=== PATIENT | male | born 1975 | race Caucasian/White ===

== ENCOUNTER → 2022-04-25 10:30 | Outpatient (BNVA) | payer SELFPAY | PROVIDERS: Family Provider Nurse Practitioner; Visit Provider Nurse Practitioner Family | DX: R21 Rash and other nonspecific skin eruption (principal); L30.9 Dermatitis, unspecified; T78.40XA Allergy, unspecified, initial encounter | CPT/HCPCS: 80053 ==

== ENCOUNTER 2024-07-06 12:37 | Inpatient (IN) | payer SELFPAY ==
[2024-07-06] VITALS (25 sets, daily range): BP systolic 98–138; BP diastolic 64–88; PULSE 66–92; RESP 9–26; TEMP 36.8–37.9; O2SAT 89–98; BMI 26.2; BMI 24.5
--- NOTE | 2024-07-06 12:37 | ECG_ITS ---
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 Measurements Intervals [place] Rate: 61 P: 70 PA: 153 QRS: 69 QRSD: 110 T: 60 QT: 406 QTc: 411 Interpretive Statements SINUS RHYTHM INFERIOR MYOCARDIAL INFARCTION , POSSIBLY ACUTE [40+ ms Q WAVE AND/OR ST/T ABNORMALITY IN II/aVF] ACUTE MD No previous ECG available for comparison Electronically Signed On 07-06-2024 21:27:59 INSPECTOR RAW QUARTZ by Tahir Mayorga M.D. [email or web address]
--- NOTE | 2024-07-06 12:40 | XACV_ITS ---
Ht: 183 cm Wt: 88 kg BSA: 2.12 m2 Gender: Male : 1975 Any Known Allergies: Other Exam Priority: Routine Procedure(s): Procedure Description: Diagnostic procedure Procedure Description: PCI procedure Procedure Description: Left Heart Catheterization Procedure Description: Left ventriculography Procedure Description: Drug Eluting Coronary Stent Procedure Description: PTCA Procedure Description: Miscellaneous Procedure Description: ACT Procedure Description: Coronary Angiography Diagnostic Cath Status: Emergency Diagnostic Findings * Left Main has no disease. * Circumflex has no disease. * Mid Left Anterior Descending: moderate 50% stenosis, CRISTINO: 3 flow. * Proximal Right Coronary Artery to Distal Right Coronary Artery: total occlusion, CRISTINO: 0 flow. * Coronary angiography shows right dominance. PCI Indication: STEMI - Immediate PCI for STEMI Interventional Findings * Successful PCI to mid RCA. Lesion was prepared with 2.5 x 12 mm TREK balloon, followed by deployment of KENJI MDT 3.5 x 18 mm stent posted at high LUNA of 12 mm. Stent was then post-dilated with serial dilatation of NC MDT 3.75 x 20 at 14 LUNA in its entire length to ensure proper approximation. Excellent angiographic result with CRISTINO-3 flow was achieved. Conclusions 1. There is total occlusion coronary artery disease with two vessel disease. 2. All quezada are normal. 3. Normal left ventricular systolic function. Ejection fraction of 60%. 4. Proximal Right Coronary Artery to Distal Right Coronary Artery was treated with a Balloon, Drug Eluting Stent, and Balloon. Recommendations * 1-Return to inpatient for close monitoring and routine cath care 2-Risk factor modification for secondary prevention 3-Statin and aspirin 81 mg life-long, if tolerated 4-Patient was pre-loaded with 600 mg of Plavix, continue Plavix 75mg p.o. daily for at least one year. We will assess at the end of one year again to continue if further or not 5-Continue optimal medical management 6-Follow up with Dr. Lipscomb in four weeks and your primary care in 10 days. Interventional RX Recommendation: PCI w/o planned CABG Diagnostic RX Recommendation: PCI w/o planned CABG Ventriculography Ejection Fraction: 60.0 % Pressures Phase:Rest AO : 134 / 81 ( 102 ) @ 1:05:00 PM 83 / 53 ( 71 ) @ 1:13:00 PM 141 / 86 ( 111 ) @ 1:32:00 PM 142 / 87 ( 113 ) @ 1:32:00 PM LV : 153 / 9 / 25 @ 1:31:00 PM 154 / 11 / 30 @ 1:32:00 PM 156 / 11 / 29 @ 1:32:00 PM Valves Phase:DefaultPhase AV : 10.0 @ 1:41:35 PM AV Mean Gradient: 19.0 @ 1:41:35 PM Clinical Evaluation EBL: 5mL-10mL Procedural Details Procedure Consent Obtained. Pre-Procedure Time Out. Identified patient by full name and date of as verbalized by the patient/guarantor. Does the consent match the physician's order: N/A Emergent. Accurate & Complete Informed Consent: N/A Emergent. Inpatient/Outpatient History & Physical on Chart: N/A Emergent. If H&P is completed, is and addenduem needed: N/A Emergent; If yes, is the addendum complete: N/A Emergent. Visualize and Verify Site with Patient/Guarantor: N/A. Relevant Radiology Images available: No. Pre-op teaching completed and patient verbalized understanding. The risks, benefits, and alternatives of sedation and/or procedure were discussed by physician. The patient agrees to continue. Procedure started. [facility] Clinical Fraility Score: 3: Managing Well. 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 Chest Pain Symptom Assessment: Typical Angina Symptoms. Cardiovascular Instability: No. Correct patient, site and procedure confirmed by cath team. PERRLA. 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 Lungs clear x 5 lobes. IV Site on Arrival: 20 gauge in the right anticubital. IV Site on Arrival: 18 gauge in the left anticubital. IV Fluids: 0.9% NaCl at KVO. 900 mL infused prior to skill labor. Oxygen started at 2liters/min via nasal canula. right groin was prepped with chloroprep then draped in the usual sterile fashion. right radial was prepped with chloroprep then draped in the usual sterile fashion. Physician arrived. Equipment: 6F - Radial. Cardiac Cath Pack. ACIST Manifold Kit Model BT 2000. Heparinized Saline (2 units/mL), 1000 mL bag. Baseline sample Acquired. HR: 65 BPM. Pre Procedural Pulses: bilateral radial was 3+. Physician scrubbed in. Immediate Pre-Procedure Time Out. Correct Patient: Yes; Correct Procedure: Yes; Correct Site: Yes; Correct Patient Position: Yes; Correct Supplies: Yes; Dried Flammable Prep: Yes; Blood Products Available: N/A;. Lidocaine 1% infiltrated to the right radial. Arterial access obtained. 6 icelandic JR 4 guide catheter was inserted over the wire. AP pads applied to pt. Runthrough guidewire was advanced through the guide catheter to lesion in the prox RCA. A 2nd Runthrough guidewire was advanced through the guide catheter to lesion in the mid RCA. Inflation number : 1 A AB TREK 2.50X15 RX BALLOON was prepped and advanced across the Prox RCA , then inflated to 8 LUNA for 0:07 seconds. Inflation number: 2 The AB TREK 2.50X15 RX BALLOON was reinflated across the Prox RCA, to 14 LUNA for 0:14 seconds. Balloon out. Results checked. Inflation Number : 3 A RANDEE Arana KENJI 3.5X30 VICENTE -Lot Number# [id number] exp date 01/14/2027 was prepped and advanced across the Prox RCA. The stent was deployed at 12 LUNA for 0:25 seconds. Stent balloon out over wire. ACT drawn. Results 357 seconds. Therapeutic limits - pre-heparin administration 90-150 seconds and monitoring heparin during a vascular procedure >250 seconds. Inflation number : 4 A MDT NC EUPHORA RX [id number] BALLOON was prepped and advanced across the Prox RCA , then inflated to 14 LUNA for 0:21 seconds. Inflation number: 5 The MDT NC EUPHORA RX [id number] BALLOON was reinflated across the Prox RCA, to 14 LUNA for 0:17 seconds. Results checked. Balloon out. Wire out. Guide catheter out. A 5 icelandic TIG catheter in over wire. Multiple views taken of left coronary artery. Catheter removed over the exchange wire. A 5 icelandic Angled Pig catheter in over wire. EDP Sample taken: LV 153/9,25; HR: 93 BPM; SpO2: 98%. LV gram performed in BLACK @ 10 mL/second for a total of 30 mL. EDP Sample taken: LV 154/11,30; HR: 94 BPM; SpO2: 98%. Pullback taken: LV 156/11,29; AO 141/86(111); Mean: 19mmHg, Peak to Peak: 10mmHg, SEP: 9sec/min; HR: 93 BPM; SpO2: 98%. Catheter removed over the exchange wire. Physician scrubbed out. A TR Band was successful obtaining hemostatsis at the Right Radial artery insertion site. TR band placed. Hemostasis obtained. Post Procedure: Pulses reassessed and unchanged. PERRLA. 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 No VTE prophylaxis required. Medication's Wasted: Lidocaine 1% = 18 mL. Medication's Wasted: Nitro = 49.8 mg. Medication's Wasted: Heparin = 1000 units. Medication's Wasted: Other = atropine 0.5 mg. Medication's Wasted: Other = aggrastat 56 mL. Contrast type used: Omnipaque 300 mgI/mL, 500 mL bottle. Total IV fluids: 250 mL. Post-op diagnosis: stemi. PCI Indication: STEMI. Complications: none. Estimated blood loss: 5mL-10mL. Responsiveness - Normal response to verbal stimuli; alert and oriented, PERRLA. Airway - Unaffected, no intervention required; spontaneous ventilation. Circulation: W/N/L, pulses unchanged. Nausea/Vomiting: No. Procedure completed. Patient transferred by bed to ICU. Vital chart was stopped. Access Site Site: Right Radial artery Sheath Size: 6 Fr Hemostasis Method: TR Band Hemostasis Success: Successful Procedure Medications Start: 12:58 PM Stop: 12:58 PM Medication: Versed Amount: 1 mg Route: I.V. Start: 12:58 PM Stop: 12:58 PM Medication: Fentanyl Amount: 50 mcg Route: I.V. Start: 12:59 PM Stop: 12:59 PM Medication: Benadryl Amount: 50 mg Start: 1:04 PM Stop: 1:04 PM Medication: Heparin Amount: 5000 units Route: I.V. Start: 1:11 PM Stop: 1:11 PM Medication: 0.9% Saline Amount: 250 ml Route: I.V. bolus Start: 1:12 PM Stop: 1:12 PM Medication: Atropine Amount: 0.5 mg Route: I.V. Start: 1:13 PM Stop: 1:13 PM Medication: Zofran (ondansetron) Amount: 4 mg Route: I.V. Start: 1:23 PM Stop: : PM Medication: Aggrastat 12.5 mg/250 mL Amount: 44 ml Route: I.V. bolus Start: 1: PM Stop: : PM Medication: Versed Amount: 1 mg Route: I.V. Start: 1: PM Stop: : PM Medication: Fentanyl Amount: 50 mcg Route: I.V. I, the attending physician, have reviewed and verified all procedure medications. Yes, all medications given per verbal order History/Risk Factors Hypertension: No Dyslipidemia: No Peripheral Arterial Disease (PAD): No Myocardial Infarction (DC): No Obesity: No Renal Disease: No Tobacco Use: Current/Recent(w/in 1 year) Prior Interventions PCI: No CABG: No Valve Surgery: No Report Signatures Finalized by Lizeth Lipscomb MD on 07/17/2024 10:21 PM
[2024-07-06] MEDS: clopidogrel 300 mg Tablet 600 MG PO (12:44)
[2024-07-06] MEDS: heparin 5,000 unit/mL INJ 1 mL 4000 UNIT IVP (12:44)
--- NOTE | 2024-07-06 12:46 | ED_ITS ---
HPI - Chest Pain General: Chief Complaint: Chest Pain Stated Complaint: chest pain Time Seen by Provider: 07/06/24 12:40 History of Present Illness: 49-year-old male presents emergency room via EMS with a acute STEMI. Patient was chopping wood began having chest pain rated 8 out of 10. EMS came and seen him there is obvious ST elevation in the inferior leads they had called ahead and a STEMI was called prior to the arrival. Dr. Lipscomb arrived in the department almost immediately after the patient arrived via ambulance. Repeat EKG shows ST elevation [place] in the inferior leads with reciprocal changes patient still reporting chest pain 7 out of 10 in the field he received aspirin 3 sublingual nitroglycerin and 100 of fentanyl. He is mildly hypotensive with a blood pressure 1 100/64 he is still complaining of persistent chest pain. He denies any history of coronary artery disease. 1 month ago he had an episode of chest pain EMS came and seen the patient at the scene evidently he declined care. He states he has not had any other episodes of chest pain since then until now Associated symptoms: Deny abdominal pain, dyspnea or fever(s) Related Data Previous Rx's Medication Instructions Recorded clindamycin HCl 300 mg capsule 300 mg PO TID 10 days #30 caps 04/24/22 fluconazole 200 mg tablet 200 mg PO DAILY 7 days #7 tabs 04/24/22 (Diflucan) silver sulfadiazine 1 % topical 1 applic topical BID #50 grams 04/24/22 cream (Silvadene) Allergies Allergy/AdvReac Type Severity Reaction Status Date / Time Penicillins Allergy Severe ALGY-Rash Verified 04/24/22 13:56 penicillin V [From Pen-Vee K] Allergy Intermediate ALGY-Rash Verified 04/24/22 13:56 cephalexin Allergy Intermediate ALGY-Rash Uncoded 04/24/22 13:56 Review of Systems Const: Denies: fever(s) or chills Card: Denies: chest pain Resp: Denies: dyspnea GI: Denies: abdominal pain : Denies: dysuria, urinary frequency or urinary urgency Musc: Denies: neck pain or back pain Skin/Breast: Denies: rash PFSH ED PFSH: Social History Smoking and tobacco/nicotine status: current every day tobacco/nicotine user Physical Exam Const: COMMON NORMALS: no acute distress GENERAL APPEARANCE: cooperative and comfortable ORIENTATION/CONSCIOUSNESS: Yes awake, Yes oriented to person, Yes oriented to place and Yes oriented to time HENMT: COMMON NORMALS: normocephalic, atraumatic and hearing grossly normal bilaterally HEAD & SCALP: normocephalic and atraumatic Resp: COMMON NORMALS: normal respiratory effort, No retractions, No use of accessory muscles and clear to auscultation bilaterally AUSCULTATION: clear to auscultation bilaterally Cardio: COMMON NORMALS: regular rate, regular rhythm and No murmurs present (Cardio) RATE: regular rate RHYTHM: regular rhythm GI: COMMON NORMALS: Soft to palpation and No hepatosplenomegaly present AUSCULTATION: Yes normoactive bowel sounds PALPATION: Yes Soft to palpation, No Tenderness to palpation present (GI), No Guarding due to palpation present (GI) and Yes No hepatosplenomegaly present Extremity: COMMON NORMALS: normal to inspection, capillary refill normal, no clubbing, cyanosis or edema, no calf tenderness and no pedal edema Neuro: SENSORIUM/ORIENTATION: Yes oriented to person, Yes oriented to place and Yes oriented to time Skin: COMMON NORMALS: no rashes or lesions noted GENERAL SKIN EXAM: no rashes or lesions noted Course Vital Signs: Vital signs: Vital Signs Temperature 98.2 F 07/06/24 12:38 Pulse Rate 75 07/06/24 12:42 Respiratory Rate 16 07/06/24 12:42 Blood Pressure 100/64 07/06/24 12:38 Pulse Oximetry 94 07/06/24 12:42 Oxygen Delivery Me thod Room Air 07/06/24 12:42 MDM - Chest Pain Medical Decision Making Acute ST elevation [place]. Patient given Plavix heparin. Her completed the remainder of the IV fluids that EMS had initiated he was given a total of a liter 500 prior to arrival and [address] Healy has seen the patient concurs with our assessment and is planning to take the patient directly to the Textile Engraver. Medical Records I reviewed the patient's medical records. Lab Data I reviewed the patient's lab results. All radiology interpretation(s) finalized by discharge Discharge Plan Discharge Patient Disposition: Admitted As Inpatient Clinical Impression: ST elevation myocardial infarction (STEMI), Cigarette smoker Condition: Stable Prescriptions: No Action silver sulfadiazine [Silvadene] 1 % cream 1 applic topical BID Qty: 50 0RF Rx Instructions: apply a 1.5 mm thickness clindamycin HCl 300 mg capsule 300 mg PO TID 10 Days Qty: 30 0RF fluconazole [Diflucan] 200 mg tablet 200 mg PO DAILY 7 Days Qty: 7 0RF Coding Level of Care Code ED [facility] Assembler for Jean Marie Cervantes
--- NOTE | 2024-07-06 12:48 | XR_ITS ---
WS: [id number] XR chest 1V portable 25306 REASON FOR EXAM: dyspnea/cough FINDINGS: Moderate tortuosity of the thoracic aorta. The heart is at the upper limits of normal in size. Calcified granulomas disease in both hemithoraces. No acute pulmonary parenchymal or pleural abnormality is identified. No significant abnormality of the bony thorax. XR/XR chest 1V portable [id number] IMPRESSION: No acute abnormality.
[2024-07-06 12:51] LABS: Basophils # 0.1 10^3/uL (0.0-0.1); Basophils % 0.5 %; Eosinophils # 0.2 10^3/uL (0.0-0.8); Eosinophils % 1.3 %; Hematocrit 47.5 % (37-53); Lymphocytes # 3.4 10^3/uL (0.8-4.8); Lymphocytes % 22.2 %; Mean Corpuscular HGB Conc 33.3 g/dL (30-55); Mean Corpuscular Hemoglobin 30.4 pg (27-33); Mean Corpuscular Volume 91.3 fl (82-101); Mean Platelet Volume 9.4 fL (7.4-10.4); Monocytes # 1.2 10^3/uL (0.2-0.9); Monocytes % 7.9 %; Neutrophils # 10.43 10^3/uL (1.8-7.7); Neutrophils % 67.7 %; Nucleated Red Blood Cells % 0 %; Platelet Count 314 10^3/cmm (157-399); Red Cell Distribution Width 14.2 % (12.1-15.1); White Blood Count 15.39 10^3/uL (3.29-11.43)
--- NOTE | 2024-07-06 12:51 | P.HP_ITS ---
Providers/Chief Complaint 2 Admitting Physician: Lizeth Lipscomb MD Chief Complaint: chest pain History of Present Illness Galileo Sorto is a 49 year old male past medical history significant for history of illicit drug abuse/meth as per patient he is clean for a while and has not done it in the near past. Other comorbidities are continues tobacco abuse. Patient started having chest pain 1 hour ago when it become more intense call 911, EKG showed inferior wall ST elevation with reciprocal changes, patient was given nitroglycerin with drop the blood pressure. Given IV fluid. He was taken to the ER twelve-lead EKG suggestive of inferior ST elevation [place]. Patient has been seen by me in the emergency room. He consented to proceed with left heart cath. Medications/Allergies Home Medications Medication Instructions Recorded Confirmed Last Taken Type clindamycin HCl 300 mg capsule 300 mg PO TID 10 days #30 caps 04/24/22 04/24/22 Unknown Rx fluconazole 200 mg tablet 200 mg PO DAILY 7 days #7 tabs 04/24/22 04/24/22 Unknown Rx (Diflucan) silver sulfadiazine 1 % topical 1 applic topical BID #50 grams 04/24/22 04/24/22 Unknown Rx cream (Silvadene) Allergies Allergy/AdvReac Type Severity Reaction Status Date / Time Penicillins Allergy Severe ALGY-Rash Verified 04/24/22 13:56 penicillin V [From Pen-Vee K] Allergy Intermediate ALGY-Rash Verified 04/24/22 13:56 cephalexin Allergy Intermediate ALGY-Rash Uncoded 04/24/22 13:56 PFSH Acute 2 PFSH: Social History Smoking and tobacco/nicotine status: current every day tobacco/nicotine user Vitals/I&O/Wt Last Vital Signs Temp 98.2 F 07/06/24 12:38 Pulse 75 07/06/24 12:42 Resp 16 07/06/24 12:42 BP 100/64 07/06/24 12:38 Pulse Ox 94 07/06/24 12:42 O2 Del Method Room Air 07/06/24 12:42 Weight last 48 hrs Weight 193 lb Physical Exam 2 Const: OTHER: GENERAL: Patient is alert, awake and oriented x3. HEART: Regular S1 and S2. No murmur, rub or gallop. LUNGS: Clear to auscultate bilaterally. CENTRAL NERVOUS SYSTEM: Grossly nonfocal. EXTREMITIES: Lower extremities with out edema bilaterally. Data 07/06/24 12:46 07/06/24 12:46 A&P Assessment and plan (1) ST elevation myocardial infarction (STEMI): Given ST elevation IN typical symptoms and EKG will proceed with emergent left heart cath/PCI if indicated. Patient has been consented after explaining all risk benefit and alternative for the procedure he would like to proceed with it. Patient has been started on dual antiplatelet therapy given heparin. Further plan will be advised as per progress the patient. Qualifiers: Involved coronary artery: other coronary artery Qualified Code(s): I 21.29 - ST elevation (STEMI) myocardial infarction involving other sites (2) Cigarette smoker: Advised quitting smoking. Attestations 2 Medical Necessity Statement*: I am expecting his stay to cross more than 2 midnights this is inpatient admission for ST elevation IN status post PCI. Coding Level of Care Code Acute Code for [facility] Diagnoses ST elevation myocardial infarction (STEMI) involving other coronary artery I21.29 Involved coronary artery: other coronary artery Cigarette smoker F17.210
[2024-07-06 13:36] LABS: Alanine Aminotransferase 26 U/L (0-41); Albumin Level 3.9 g/dL (3.5-5.2); Alkaline Phosphatase 59 U/L (40-130); Aspartate Amino Transferase 25 U/L (0-40); Blood Urea Nitrogen 20 mg/dL (6-20); Calcium 8.3 mg/dL (8.5-10.5); Carbon Dioxide 20 mmol/L (22-29); Chloride 104 mmol/L (98-107); Globulin 2.1 g/dL (1.3-4.6); Glomerular Filtration Rate 118.9 mL/min (90-130); Glucose 172 mg/dL (65-115); Osmolality Calculated 291 mOsm/kg (285-295); Sodium 137 mmol/L (136-145); Total Bilirubin 0.3 mg/dL (0.15-1.2); Troponin(5th) Baseline 11 ng/L (0-15)
--- NOTE | 2024-07-06 13:47 | USCV_ITS ---
Galileo Sorto Age: 49 Gender: M : 1975 Exam Date: 07/06/2024 14:53 Ordering Phys: Lizeth Lipscomb MD ([email or web address]) Technologist: [place] [facility] [place]: nstemi BP: 106 / 73 HR: 80 Rhythm: Sinus Technical Quality: Adequate MEASUREMENTS (Male / Female) Normal Values 2D ECHO LV Diastolic Diameter PLAX 4.7 cm 4.2 - 5.9 / 3.9 - 5.3 cm IVS Diastolic Thickness 1.3 cm 0.6 - 1.0 / 0.6 - 0.9 cm IVS Systolic Thickness 1.5 cm LVPW Diastolic Thickness 1.3 cm 0.6 - 1.0 / 0.6 - 0.9 cm LVPW Systolic Thickness 1.8 cm LVOT Diameter 2.0 cm LV Ejection Fraction 2D Teich 60.7 % LV Ejection Fraction MOD 4C 58.1 % LV Ejection Fraction MOD 2C 45.8 % LV Ejection Fraction 2C AL 46.9 % LA Diameter 3.5 cm RA Systolic Volume 4C AL 37.5 ml RA Systolic Volume 4C MOD 34.4 ml Aorta at Sinotubular Diameter 3.1 cm M-MODE LA Ao Ratio MM 1.0 MV E Point Septal Separation 0.4 cm AV Cusp Separation MM 2.4 cm DOPPLER AV Peak Velocity 123.0 cm/s LVOT Peak Velocity 98.0 cm/s AV Area Cont Eq vti 2.8 cm squared AV Area Cont Eq pk 2.4 cm squared MV Peak Velocity 85.0 cm/s MV Area PHT 5.1 cm squared Mitral E to A Ratio 1.1 TR Peak Velocity 183.0 cm/s TR Peak Gradient 13.4 mmHg TV Peak E Velocity 117.0 cm/s PV Peak Velocity 88.0 cm/s FINDINGS Left Ventricle Left ventricle is normal in size. LV systolic function is normal with EF of 55 to 60%. No regional wall motion abnormalities are seen Right Ventricle Normal in size and function Right Atrium Normal in size Left Atrium Normal in size Mitral Valve Structurally normal mitral valve. Trace mitral regurgitation Aortic Valve Structurally normal aortic valve. No significant stenosis or regurgitation. Tricuspid Valve Mild tricuspid regurgitation. Insufficient TR jet to calculate RVSP. Pulmonic Valve Trace pulmonic regurgitation Pericardium Normal Aorta Normal in size IVC Not well visualized CONCLUSIONS LV systolic function is normal with EF of 55 to 60%. Trace mitral regurgitation. Mild tricuspid regurgitation Trace pulmonic regurgitation No comparison studies are available. Tahir Mayorga MD (Electronically Signed) Final Date: 07 July 2024 09:18 S
--- NOTE | 2024-07-06 14:39 | ECG_ITS ---
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 Measurements Intervals [place] Rate: 73 P: 69 DC: 142 QRS: 58 QRSD: 101 T: 3 QT: 381 QTc: 421 Interpretive Statements SINUS RHYTHM WITH SINUS ARRHYTHMIA PROBABLE INFERIOR MYOCARDIAL INFARCTION , PROBABLY OLD [35 ms Q WAVE IN II/aVF] Compared to ECG 07/06/2024 12:37:58 No significant changes Electronically Signed On 07-06-2024 21:46:51 LINER CHECKER by Tahir Mayorga M.D. [email or web address]
[2024-07-06] MEDS: sodium chloride 0.9% 1,000 ML 100 ML IV (15:38)
[2024-07-06 16:26] LABS: Troponin 5 2HR Delta 219.5 ABS# (0-10)
[2024-07-06 16:27] LABS: Troponin 5 2HR 230.5 ng/L (0-15)
--- NOTE | 2024-07-06 18:29 | ECG_ITS ---
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 Measurements Intervals [place] Rate: 73 P: 65 CA: 149 QRS: 62 QRSD: 98 T: -11 QT: 371 QTc: 411 Interpretive Statements SINUS RHYTHM NONSPECIFIC T-WAVE ABNORMALITY Compared to ECG 07/06/2024 15:57:54 T-wave abnormality now present Sinus arrhythmia no longer present Myocardial infarct finding no longer present Electronically Signed On 07-06-2024 21:46:27 ACCOUNTING SYSTEMS ANALYST by Tahir Mayorga M.D. [email or web address]
[2024-07-06 20:01] LABS: Troponin 5 6HR Delta 634.9 ng/L (0-12)
[2024-07-06 20:02] LABS: Troponin 5 6HR 645.9 ng/L (0-15)
--- NOTE | 2024-07-06 22:43 | PC.NURSE ---
TR band removed and tegaderm dressing applied.
[2024-07-07] MEDS: sodium chloride 0.9% 1,000 ML 100 ML IV (01:15)
[2024-07-07 05:11] LABS: Basophils # 0.1 10^3/uL (0.0-0.1); Basophils % 0.4 %; Eosinophils # 0.2 10^3/uL (0.0-0.8); Eosinophils % 1.3 %; Lymphocytes # 2.2 10^3/uL (0.8-4.8); Mean Corpuscular HGB Conc 32.2 g/dL (30-55); Mean Corpuscular Hemoglobin 29.4 pg (27-33); Mean Corpuscular Volume 91.3 fl (82-101); Mean Platelet Volume 9.4 fL (7.4-10.4); Monocytes # 1.3 10^3/uL (0.2-0.9); Monocytes % 7.4 %; Neutrophils % 77.4 %; Nucleated Red Blood Cells % 0 %; Platelet Count 269 10^3/cmm (157-399); Red Blood Count 4.93 10^6/uL (3.85-5.65); Red Cell Distribution Width 14.5 % (12.1-15.1); White Blood Count 17.06 10^3/uL (3.29-11.43)
[2024-07-07 05:40] LABS: Anion Gap 12.9 (5-19); Blood Urea Nitrogen 12 mg/dL (6-20); Calcium 8.1 mg/dL (8.5-10.5); Carbon Dioxide 22 mmol/L (22-29); Chloride 108 mmol/L (98-107); Creatinine Clr Calc Pharmacy 140.1397; Glomerular Filtration Rate 118.9 mL/min (90-130); Glucose 105 mg/dL (65-115); Osmolality Calculated 288 mOsm/kg (285-295); Potassium 3.9 mmol/L (3.5-5.1); Sodium 139 mmol/L (136-145)
[2024-07-07 06:04] VITALS: PULSE 72
[2024-07-07 07:47] VITALS: PULSE 85; O2SAT 94
[2024-07-07] MEDS: aspirin 81 mg EC Tablet PO (09:06)
[2024-07-07] MEDS: clopidogrel 75 mg Tablet PO (09:06)
--- NOTE | 2024-07-07 12:59 | PC.NURSE ---
DC instructions educated to patient and family at bedside, to be transported home by family
[2024-07-07 13:24] VITALS: BP 142/93; PULSE 65; TEMP 36.9; O2SAT 97
--- NOTE | 2024-07-07 13:24 | PC.NURSE ---
out of facility with family at this time
--- NOTE | 2024-07-13 21:33 | P.DS_ITS ---
Discharge Providers Date of Admission: 07/06/24 14:13 Date of Discharge: July 13, 2024 Attending Provider at Admission: Lizeth Lipscomb MD Attending Provider at Discharge: Lizeth Lipscomb MD Consults: None. Diagnoses at Discharge Discharge Diagnosis (1) ST elevation myocardial infarction (STEMI): Status: Inactive Qualifiers: Involved coronary artery: other coronary artery Qualified Code(s): I21.29 - ST elevation (STEMI) myocardial infarction involving other sites (2) Cigarette smoker: Status: Acute Reason for Visit Reason for Visit: chest pain Brief History: Galileo Sorto is a 49 year old male past medical history significant for history of illicit drug abuse/meth as per patient he is clean for a while and has not done it in the near past. Other comorbidities are continues tobacco abuse. Hospital Course Hospital Course Patient started having chest pain and when it become more intense call 911, EKG showed inferior wall ST elevation with reciprocal changes, patient was given nitroglycerin with drop the blood pressure. Given IV fluid. He was taken to the ER twelve-lead EKG suggestive of inferior ST elevation CT. Patient has been seen by me in the emergency room. He consented to proceed with left heart cath. Patient underwent proximal and MID LAD balloon angioplasty and stenting and balloon angioplasty of the diagonal. Non dominant circ was not ammendable to PCI. He tolerated well w/o complications. Physical Exam Const: OTHER: GENERAL: Patient is alert, awake and oriented x3. HEART: Regular S1 and S2. No murmur, rub or gallop. LUNGS: Clear to auscultate bilaterally. CENTRAL NERVOUS SYSTEM: Grossly nonfocal. EXTREMITIES: Lower extremities with out edema bilaterally. Discharge Data Studies Completed and Pending Completed Studies During Hospitalization Category Date Time Status XR chest 1V portable [id number] Stat Exams 07/06/24 12:48 Completed CV. 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 Laboratory Results WBC 17.06 10^3/uL (3.29-11.43) H 07/07/24 03:18 RBC 4.93 10^6/uL (3.85-5.65) 07/07/24 03:18 Hgb 14.50 g/dL (11.27-16.99) 07/07/24 03:18 Hct 45.0 % (37-53) 07/07/24 03:18 MCV 91.3 fl (82-101) 07/07/24 03:18 MCH 29.4 pg (27-33) 07/07/24 03:18 MCHC 32.2 g/dL (30-55) 07/07/24 03:18 RDW 14.5 % (12.1-15.1) 07/07/24 03:18 Plt Count 269 10^3/cmm (157-399) 07/07/24 03:18 MPV 9.4 fL (7.4-10.4) 07/07/24 03:18 Neut % (Auto) 77.4 % 07/07/24 03:18 Lymph % (Auto) 13.0 % 07/07/24 03:18 [place] % (Auto) 7.4 % 07/07/24 03:18 Eos % (Auto) 1.3 % 07/07/24 03:18 Baso % (Auto) 0.4 % 07/07/24 03:18 Neut # (Auto) 13.20 10^3/uL (1.8-7.7) H 07/07/24 03:18 Lymph # (Auto) 2.2 10^3/uL (0.8-4.8) 07/07/24 03:18 [place] # (Auto) 1.3 10^3/uL (0.2-0.9) H 07/07/24 03:18 Eos # (Auto) 0.2 10^3/uL (0.0-0.8) 07/07/24 03:18 Baso # (Auto) 0.1 10^3/uL (0.0-0.1) 07/07/24 03:18 Nucleated RBC % (auto) 0 % 07/07/24 03:18 Nucleated RBCs # 0.0 /100WBC 07/07/24 03:18 Sodium 139 mmol/L (136-145) 07/07/24 03:18 Potassium 3.9 mmol/L (3.5-5.1) 07/07/24 03:18 Chloride 108 mmol/L (98-107) H 07/07/24 03:18 Carbon Dioxide 22 mmol/L (22-29) 07/07/24 03:18 Anion Gap 12.9 (5-19) 07/07/24 03:18 BUN 12 mg/dL (6-20) 07/07/24 03:18 Creatinine 0.7 mg/dL (0.7-1.2) 07/07/24 03:18 GFR Calculation 118.9 mL/min (90-130) 07/07/24 03:18 Glucose 105 mg/dL (65-115) 07/07/24 03:18 Calculated Osmolality 288 mOsm/kg (285-295) 07/07/24 03:18 Calcium 8.1 mg/dL (8.5-10.5) L 07/07/24 03:18 Total Bilirubin 0.3 mg/dL (0.15-1.2) 07/06/24 12:59 AST 25 U/L (0-40) 07/06/24 12:59 ALT 26 U/L (0-41) 07/06/24 12:59 Alkaline Phosphatase 59 U/L (40-130) 07/06/24 12:59 Troponin T Baseline 11 ng/L (0-15) 07/06/24 12:59 Troponin T 120 Minute 230.5 ng/L (0-15) H 07/06/24 15:40 Delta Troponin T 219.5 ABS# (0-10) H* 07/06/24 15:40 Troponin T Hi Sens 6Hr 645.9 ng/L (0-15) H 07/06/24 19:02 Troponin T Hi Sens 6Hr Delta 634.9 ng/L (0-12) H* 07/06/24 19:02 Total Protein 6.0 g/dL (6.6-8.7) L 07/06/24 12:59 Albumin 3.9 g/dL (3.5-5.2) 07/06/24 12:59 Globulin 2.1 g/dL (1.3-4.6) 07/06/24 12:59 Procedures Performed left heart cath with proximal and MID LAD balloon angioplasty and stenting and balloon angioplasty of the diagonal Vitals Last Vital Signs Temp 98.4 F 07/07/24 13:24 Pulse 65 07/07/24 13:24 Resp 19 H 07/06/24 20:00 BP 142/93 07/07/24 13:24 Pulse Ox 97 07/07/24 13:24 O2 Del Method Nasal Cannula 07/07/24 07:47 O2 Flow Rate 2 07/07/24 07:47 Discharge Plan Discharge Patient Disposition: Home Condition: Stable Prescriptions: No Action clopidogrel 75 mg tablet 75 mg PO DAILY 90 Days Qty: 90 3RF nitroglycerin 0.4 mg tablet, sublingual 0.4 mg sublingual Q5M PRN (Reason: Chest Pain) 25 Days Qty: 25 0RF Rx Instructions: If you take a third dose, call 911/seek medical assistance immediately aspirin 81 mg tablet,delayed release (DR/EC) 81 mg PO DAILY 90 Days Qty: 90 3RF atorvastatin 80 mg tablet 80 mg PO DAILY Qty: 30 0RF metoprolol succinate 25 mg tablet extended release 24 hr 12.5 mg PO DAILY Qty: 30 0RF Discharge Orders: Discharge Order (Routine); Ordered 07/07/24 Ordered By: Sana Mclean Referrals: Sana Mclean, AGRICULTURAL ENGINEERING TECHNOLOGIST [Nurse Practitioner] - (1 week We have notified your physician's clinic of the need for a follow-up appointment to be scheduled. If you have not heard from them within the next 2 business days, please call them directly. ) Discharge Diet: Advance as tolerated and As Directed Patient Instructions: Metoprolol (By mouth) (Lopressor, Toprol XL), Aspirin (By mouth), Nitroglycerin, Rapid Release (By mouth) (NitroMist, Nitrolingual,..., Atorvastatin (By mouth), Clopidogrel (By mouth), Heart Attack (DC), Coronary Intravascular Stent Placement (DC), Leadless Pacemaker (DC), Chest Pain Stoplig ht, Opioid Safety, Post Angiogram Home Care Instructions, Post Heart Attack Stoplight Plan of Treatment: Continue dual antiplatelet therapy x1 year. Patient to f/u in the clinic in 1 week. Recommend stress test in about 6 weeks to see if there is any significant ischemia from the circ lesion. Will continue to treat medically with beta analy, dual antiplatelet therapy, and statin. Discharge Attestations Time Spent in Discharge Care*: less than 30 min Quality Metrics Clinical Quality Measures [ No reported AMI, CVA or VTE this stay] Coding Level of Care Code Acute Code for Chg Fwd Diagnoses ST elevation myocardial infarction (STEMI) involving other coronary artery I21.29 Involved coronary artery: other coronary artery Cigarette smoker F17.210
== END 2024-07-07 13:26 | disposition home or self-care (01) | DRG 322 ==
LOC: ER 12:49 → CCL 12:52 → ICU 14:16
PROVIDERS: Emergency Medicine; Admitting Provider Internal Medicine Cardiovascular Disease; Emergency Provider Family Medicine; Visit Provider Internal Medicine Cardiovascular Disease
PROC: 027034Z Dilation of Coronary Artery, One Artery with Drug-eluting Intraluminal Device, Percutaneous Approach (ICD-10-PCS; principal; 2024-07-06 12:40)
DX: I21.3 ST elevation (STEMI) myocardial infarction of unspecified site (principal); F17.210 Nicotine dependence, cigarettes, uncomplicated; I25.10 Atherosclerotic heart disease of native coronary artery without angina pectoris
CPT/HCPCS: 36415; 71045; 80048; 80053; 84484; 85025; 85347; 93005; 93306; 93458; 96374; 96375; 99152; 99153; 99291; C1725; C1769; C1874; C1887; C1894; C9600; J0461; J1200; J1644; J2250; J2405; J3010; J3490; J7030; Q9967

== ENCOUNTER → 2024-10-25 14:42 | Outpatient (BNVA) | payer MEDICAID, SELFPAY | PROVIDERS: Visit Provider Internal Medicine | DX: I25.10 Atherosclerotic heart disease of native coronary artery without angina pectoris (principal); F17.210 Nicotine dependence, cigarettes, uncomplicated | CPT/HCPCS: 99214 ==